=== PATIENT | male | born 1965 | race African-American/Black ===

== ENCOUNTER 2018-05-26 17:21 | Inpatient (IN) | payer OTHER ==
[~2018-05-26] VITALS: Ht 162.6 cm; Wt 55.4 kg
[~2018-05-26 17:21] MED LIST: PHEN100C4 PO
[2018-05-26] MEDS ORDERED: KEPP250 PO (17:32)
[2018-05-26 19:52] LABS: BASOPHILS % 0.9 % (0.0-2.0); EOSINOPHILS % 0.7 % (0.0-5.0); HEMATOCRIT. 48.6 % (42.0-52.0); HEMOGLOBIN. 16.3 g/dL (14.0-18.0); LYMPHOCYTES % 10.7 % (20.0-50.0); MEAN CORPUSCULAR HEMOGLOBIN 30.2 pg (28.0-32.0); MEAN PLATELET VOLUME 7.1 fl (7.4-10.4); MONOCYTES % 7.3 % (2.0-8.0); NEUTROPHILS % 80.4 % (40.0-76.0); PLATELET 568 x1000/uL (130-400); RED CELL DISTRIBUTION WIDTH 14.7 % (11.6-14.6)
[2018-05-26 19:53] LABS: CHLORIDE 104 mEq/L (98-107)
[2018-05-26 20:25] LABS: CLARITY URINE CLEAR (CLEAR); COLOR URINE YELLOW (YELLOW); KETONES URINE NEGATIVE (NEGATIVE); LEUKOCYTE ESTERASE URINE NEGATIVE (NEGATIVE); NITRITE URINE NEGATIVE (NEGATIVE); OCCULT BLOOD URINE NEGATIVE (NEGATIVE); PROTEIN URINE NEGATIVE (NEGATIVE); SPECIFIC GRAVITY URINE 1.015 (1.005-1.030)
[2018-05-26] MEDS ORDERED: SODIUM CHLORIDE 0.9% 1,000 ML IV ONE (21:18)
[2018-05-26 21:59] LABS: ETHANOL BLOOD < 10 mg/dL
[2018-05-26] MEDS ORDERED: LORAZEPAM 2MG/ML CPJ IM ONE (22:45)
[2018-05-26 22:48] LABS: *AMPHETAMINES SCREEN URINE NEGATIVE (NEGATIVE); *BARBITURATES SCREEN URINE NEGATIVE (NEGATIVE); *BENZODIAZEPINES SCREEN URINE NEGATIVE (NEGATIVE); *COCAINE SCREEN URINE NEGATIVE (NEGATIVE); METHADONE URINE SCREEN NEGATIVE (NEGATIVE); OPIATES URINE SCREEN NEGATIVE (NEGATIVE); PHENCYCLIDINE URINE SCREEN NEGATIVE (NEGATIVE)
[2018-05-26 22:49] LABS: CANNABINOID URINE SCREEN NEGATIVE (NEGATIVE)
[2018-05-27] MEDS ORDERED: CLONIDINE 0.1MG TABLET PO PRN
[2018-05-27] MEDS ORDERED: MAGNESIUM/ALUMINUM HYDROXIDE/SIMETHICONE 30ML UDC PO PRN
[2018-05-27] MEDS ORDERED: IPRATROPIUM/ALBUTEROL 0.5-3(2.5)MG/3ML NEB INH PRN
[2018-05-27] MEDS ORDERED: DOCUSATE SODIUM 100MG CAPSULE PO PRN
[2018-05-27] MEDS ORDERED: ONDANSETRON HCL 4MG/2ML INJ IV PRN
[2018-05-27] MEDS ORDERED: ACETAMINOPHEN 325MG TABLET PO PRN
[2018-05-27] MEDS ORDERED: LORAZEPAM 2MG/ML CPJ IV PRN
[2018-05-27 06:51] LABS: BASOPHILS % 1.1 % (0.0-2.0); EOSINOPHILS % 2.7 % (0.0-5.0); HEMATOCRIT. 47.9 % (42.0-52.0); HEMOGLOBIN. 16.2 g/dL (14.0-18.0); LYMPHOCYTES % 20.1 % (20.0-50.0); MEAN CORPUSCULAR HEMOGLOBIN 30.3 pg (28.0-32.0); MEAN CORPUSCULAR VOLUME 89.5 fL (80.0-94.0); MEAN PLATELET VOLUME 6.7 fl (7.4-10.4); MONOCYTES % 9.1 % (2.0-8.0); PLATELET 481 x1000/uL (130-400); RED BLOOD CELL COUNT 5.35 mill/uL (4.7-6.1); RED CELL DISTRIBUTION WIDTH 14.7 % (11.6-14.6)
[2018-05-27 06:57] LABS: CHLORIDE 107 mEq/L (98-107)
[2018-05-27 07:05] LABS: LDL CHOLESTEROL 143 mg/dL (5-100)
[2018-05-27 07:07] LABS: CREATINE KINASE 287 IU/L (39-308); HDL CHOLESTEROL 64 mg/dL (40-59)
[2018-05-27 07:10] LABS: CREATINE KINASE MB FRACTION 4.2 ng/mL (0.5-3.6)
[2018-05-27 11:05] VITALS: BP 98/60
[2018-05-27 12:00] VITALS: BP 96/60
[2018-05-27] MEDS: ENOXAPARIN 40MG/0.4ML SYR SUBCUT SCH (12:58)
[2018-05-27] MEDS: SODIUM CHLORIDE 0.9% 1,000 ML IV SCH (12:59)
[2018-05-27 14:47] VITALS: BP 117/66
[2018-05-27 15:39] LABS: FOLIC ACID (FOLATE) SERUM 14.5 ng/mL (>5.38)
[2018-05-27 15:45] LABS: ETHANOL BLOOD < 10 mg/dL
[2018-05-27 15:51] LABS: CREATINE KINASE 302 IU/L (39-308)
[2018-05-27 16:00] VITALS: BP 94/61
[2018-05-27] MEDS: MULTIVITAMINS,THER W-MINERALS TABLET PO SCH (17:35)
[2018-05-27] MEDS: THIAMINE HCL 100MG TABLET PO SCH (17:35)
[2018-05-27] MEDS: FOLIC ACID 1MG TABLET PO SCH (17:40)
[2018-05-27 20:00] VITALS: BP 96/62
[2018-05-27] MEDS ORDERED: ATORVASTATIN CALCIUM 20MG TABLET PO SCH (21:00)
[2018-05-27 23:55] VITALS: BP 90/54
[2018-05-28 04:00] VITALS: BP 97/49
[2018-05-28] MEDS: SODIUM CHLORIDE 0.9% 1,000 ML IV SCH ×2 (07:04→09:31)
[2018-05-28 08:53] LABS: BASOPHILS % 0.9 % (0.0-2.0); EOSINOPHILS % 3.4 % (0.0-5.0); HEMATOCRIT. 42.3 % (42.0-52.0); LYMPHOCYTES % 20.2 % (20.0-50.0); MEAN CORPUSCULAR HEMOGLOBIN 29.9 pg (28.0-32.0); MEAN CORPUSCULAR VOLUME 90.4 fL (80.0-94.0); MEAN PLATELET VOLUME 7.1 fl (7.4-10.4); MONOCYTES % 8.2 % (2.0-8.0); NEUTROPHILS % 67.3 % (40.0-76.0); PLATELET 433 x1000/uL (130-400); RED BLOOD CELL COUNT 4.68 mill/uL (4.7-6.1); RED CELL DISTRIBUTION WIDTH 14.6 % (11.6-14.6)
[2018-05-28] MEDS: THIAMINE HCL 100MG TABLET PO SCH (08:58)
[2018-05-28] MEDS: MULTIVITAMINS,THER W-MINERALS TABLET PO SCH (08:58)
[2018-05-28] MEDS: FOLIC ACID 1MG TABLET PO SCH (08:58)
[2018-05-28 08:59] LABS: CHLORIDE 108 mEq/L (98-107)
[2018-05-28] MEDS: ENOXAPARIN 40MG/0.4ML SYR SUBCUT SCH (08:59)
[2018-05-28 12:00] VITALS: BP 112/72
== END 2018-05-28 19:33 | disposition left against medical advice (07) | DRG 52 ==
LOC: ER 17:21 → 7WST 22:50 → EDBEDREQ 22:55 → EDBEDREQTM 22:55 → ENRESERV 05-27 07:24 → 7WST 05-27 11:13
PROVIDERS: ADMIT Internal Medicine; ATTEND Internal Medicine
DX: G92 Toxic encephalopathy (principal); G93.89 Other specified disorders of brain; I69.351 Hemiplegia and hemiparesis following cerebral infarction affecting right dominant side; E78.00 Pure hypercholesterolemia, unspecified; R26.81 Unsteadiness on feet; G40.909 Epilepsy, unspecified, not intractable, without status epilepticus; E78.5 Hyperlipidemia, unspecified; T42.0X5A Adverse effect of hydantoin derivatives, initial encounter; Z53.21 Procedure and treatment not carried out due to patient leaving prior to being seen by health care provider; Y92.89 Other specified places as the place of occurrence of the external cause
CPT/HCPCS: 36415; 71045; 80048; 80061; 80185; 80305; 80307; 80320; 80329; 82140; 82550; 82553; 82607; 82746; 83036; 84443; 84484; 93005; 93970; 96360; 96372; 97162; 97166; 99285; J1650; J2060; J7030; G0480

== ENCOUNTER → 2018-05-28 | Emergency (ER) | payer OTHER | LOC: ER 21:33 | DX: Z53.21 Procedure and treatment not carried out due to patient leaving prior to being seen by health care provider (principal) ==

== ENCOUNTER 2018-05-29 02:21 | Emergency (ER) | payer OTHER ==
[~2018-05-29] VITALS: Ht 165.1 cm; Wt 69.0 kg
[2018-05-29] MEDS ORDERED: PHENYTOIN SODIUM EXTENDED 100MG CAPSULE PO ONE (03:45)
[2018-05-29 14:00] VITALS: BP 98/62
== END 2018-05-29 16:40 | disposition home or self-care (01) ==
LOC: ER 06:25
DX: Z76.0 Encounter for issue of repeat prescription (principal); G40.909 Epilepsy, unspecified, not intractable, without status epilepticus; F12.90 Cannabis use, unspecified, uncomplicated; Z59.0 Homelessness
CPT/HCPCS: 99283

== ENCOUNTER 2018-06-27 08:27 | Inpatient (IN) | payer MEDICAID, OTHER ==
[~2018-06-27] VITALS: Ht 170.2 cm; Wt 71.7 kg
[2018-06-27] MEDS ORDERED: SODIUM CHLORIDE 0.9% 1,000 ML IV ONE (08:54)
[2018-06-27 09:11] LABS: BASOPHILS % 0.8 % (0.0-2.0); EOSINOPHILS % 4.1 % (0.0-5.0); HEMATOCRIT. 42.2 % (42.0-52.0); HEMOGLOBIN. 14.1 g/dL (14.0-18.0); LYMPHOCYTES % 12.4 % (20.0-50.0); MEAN CORPUSCULAR HEMOGLOBIN 29.6 pg (28.0-32.0); MEAN CORPUSCULAR VOLUME 88.8 fL (80.0-94.0); MEAN PLATELET VOLUME 7.3 fl (7.4-10.4); MONOCYTES % 5.9 % (2.0-8.0); NEUTROPHILS % 76.8 % (40.0-76.0); PLATELET 503 x1000/uL (130-400); RED BLOOD CELL COUNT 4.76 mill/uL (4.7-6.1); RED CELL DISTRIBUTION WIDTH 14.8 % (11.6-14.6)
[2018-06-27 09:17] LABS: CHLORIDE 107 mEq/L (98-107)
[2018-06-27 09:23] LABS: ETHANOL BLOOD < 10 mg/dL
[2018-06-27 09:27] LABS: CREATINE KINASE 289 IU/L (39-308)
[2018-06-27 09:45] LABS: INR 1.1; PARTIAL THROMBOPLASTIN TIME 30.4 sec (23.4-31.0); PROTHROMBIN TIME 10.9 sec (9.6-11.0)
[2018-06-27 10:38] LABS: CLARITY URINE CLEAR (CLEAR); COLOR URINE YELLOW (YELLOW); KETONES URINE NEGATIVE (NEGATIVE); LEUKOCYTE ESTERASE URINE NEGATIVE (NEGATIVE); NITRITE URINE NEGATIVE (NEGATIVE); OCCULT BLOOD URINE NEGATIVE (NEGATIVE); PH URINE 6.5 (4.5-8.0); PROTEIN URINE NEGATIVE (NEGATIVE); SPECIFIC GRAVITY URINE 1.014 (1.005-1.030); UROBILINOGEN URINE 0.2 E.U./dL (0.2-1.0)
[2018-06-27] MEDS ORDERED: PHENYTOIN SODIUM 1,000 MG in SODIUM CHLORIDE 0.9% 100 ML IV ONE (10:45)
[2018-06-27 11:00] LABS: *AMPHETAMINES SCREEN URINE NEGATIVE (NEGATIVE); *BARBITURATES SCREEN URINE NEGATIVE (NEGATIVE); *BENZODIAZEPINES SCREEN URINE NEGATIVE (NEGATIVE); *COCAINE SCREEN URINE NEGATIVE (NEGATIVE)
[2018-06-27 11:01] LABS: CANNABINOID URINE SCREEN PRESUMTIVE POSITIVE (NEGATIVE); METHADONE URINE SCREEN NEGATIVE (NEGATIVE); OPIATES URINE SCREEN NEGATIVE (NEGATIVE); PHENCYCLIDINE URINE SCREEN NEGATIVE (NEGATIVE)
[2018-06-27 11:09] LABS: CHLORIDE 112 mEq/L (98-107)
[2018-06-27 16:51] VITALS: BP 114/67
[2018-06-27] MEDS ORDERED: LORAZEPAM 2MG/ML CPJ IV PRN (17:45)
[2018-06-27] MEDS: ENOXAPARIN 40MG/0.4ML SYR SUBCUT SCH ×2 (18:00→21:24)
[2018-06-27 20:00] VITALS: BP 93/57
[2018-06-27 21:30] VITALS: BP 93/57
[2018-06-27] MEDS: PHENYTOIN SODIUM EXTENDED 100MG CAPSULE PO SCH (22:23)
[2018-06-28] MEDS: PHENYTOIN SODIUM EXTENDED 100MG CAPSULE PO SCH (09:29)
== END 2018-06-28 11:20 | disposition home or self-care (01) | DRG 53 ==
LOC: ER 08:27 → 6WST 11:24 → ENRESERV 13:41
PROVIDERS: ADMIT Internal Medicine; ATTEND Internal Medicine
DX: R56.9 Unspecified convulsions (principal); G93.89 Other specified disorders of brain; M48.02 Spinal stenosis, cervical region; I69.351 Hemiplegia and hemiparesis following cerebral infarction affecting right dominant side; E83.41 Hypermagnesemia; M47.892 Other spondylosis, cervical region; Z87.828 Personal history of other (healed) physical injury and trauma; Z79.899 Other long term (current) drug therapy
CPT/HCPCS: 36415; 71045; 80048; 80185; 80305; 80320; 82550; 83735; 96361; 96365; 99291; J1165; J1650; J7030; J7050; G0480